=== PATIENT | male | born 2000 | race Two or more races ===

== ENCOUNTER 2024-02-04 20:26 | Emergency (ER) | payer SELFPAY ==
[2024-02-04] MEDS: Diphtheria,Pertussis(Acell),Tetanus Vaccine 0.5 ML Syringe IM ONE (21:20)
[2024-02-04] MEDS: Lidocaine 1% 10 ML MDV INJECT ONE (21:22)
== END 2024-02-04 22:00 | disposition home or self-care (01) ==
LOC: JD.ED 20:26
DX: S01.412A Laceration without foreign body of left cheek and temporomandibular area, initial encounter (principal); Z23 Encounter for immunization; W26.8XXA Contact with other sharp object(s), not elsewhere classified, initial encounter
CPT/HCPCS: 12011; 90471; 90715; 99282; 99282-25; J3490